=== PATIENT | female | born 1970 | race Caucasian/White ===

== ENCOUNTER 2022-12-03 15:09 | Emergency (ER) | payer MEDICARE, SELFPAY ==
[2022-12-03 15:17] VITALS: BP 137/83; PULSE 84; RESP 18; TEMP 36.4; O2SAT 99; BMI 40.4
--- NOTE | 2022-12-03 15:26 | ED.EXTPRO1 ---
HPI - Extremity Problem General Chief complaint: Chest Pain Stated complaint: UPPER EXTREMITY PAIN Time Seen by Provider: 12/03/22 15:26 Mode of arrival: walk-in History of Present Illness HPI Narrative: Patient presents to emergency department complaining of left arm pain, left shoulder pain and chest pain that started yesterday. She states she woke up and her left shoulder was hurting radiating to her arm and chest. She states her arm looks a little bit puffy 2. She states the pain is worse when she lays down on it fall out of bed. She denies any fever, chills, or cough. She denies any shortness of breath. She does not have any history of heart disease or thrombotic embolic disease but states her mother had a clotting disorder. She has a history of hypertension. She has never had a cardiac workup before. She has not taking anything at home for pain. She denies any fall or trauma. She denies Any weakness. She denies any nausea, vomiting, and diarrhea. She denies any abdominal pain. She denies any flank pain, hematuria, dysuria. Related Data Home Medications Medication Instructions Recorded Confirmed ergocalciferol (vitamin D2) 1,250 2,500 mcg PO QDAY 12/03/22 12/03/22 mcg (50,000 unit) capsule hydrochlorothiazide 25 mg tablet 25 mg PO QDAY 12/03/22 12/03/22 lisinopril 20 mg tablet 20 mg PO QDAY 12/03/22 12/03/22 vitamin B12 0.5 mg-folic acid 1 mg 1 tab PO DAILY 12/03/22 12/03/22 tablet Previous Rx's Medication Instructions Recorded esomeprazole magnesium 40 mg 40 mg PO DAILY 28 days #28 caps 12/03/22 capsule,delayed release (Nexium) prednisone 50 mg tablet 50 mg PO DAILY 5 days #5 tabs 12/03/22 Allergies Allergy/AdvReac Type Severity Reaction Status Date / Time No Known Drug Allergies Allergy Verified 12/03/22 15:17 Review of Systems ROS Narrative ROS: Unless otherwise stated in this report the patient's positive and negative responses for review of systems for constitutional, eyes, ENT, cardiovascular, respiratory, gastrointestinal, neurological, , musculoskeletal and integument systems and related systems to the presenting problem are either stated in the history of present illness or were not pertinent or were negative for the symptoms and/or complaints related to the presenting medical problem. [facility] Social History Smoking status: Never smoker Exam Narrative Exam Narrative: Nurses notes and vital signs reviewed and patient is not hypoxic. General: Nontoxic, Well-appearing and in no apparent distress. Skin: Warm, dry, no pallor noted. No Rash Head: Normocephalic, atraumatic. Neck: Supple, non-tender. Eye: Pupils are equal, round and EOMI. No scleral icterus. Ears, Nose, Mouth, and Throat: TM clear, no posterior oropharynx erythema or nasal mucosal hypertrophy, uvula is mid-line Oral mucosa is moist Cardiovascular: Regular Rate and Rhythm without murmur, gallop or rub. Respiratory: No accessory muscle use or respiratory distress. Lungs are clear to auscultation, no wheezing, rales or rhonchi Chest Wall: no tenderness Back: No midline thoracic or lumbar vertebral tenderness. No CVA tenderness Musculoskeletal: Rest to palpation to the left anterior and posterior shoulder. Pain is worsened with palpation and range of motion. Pain is worse over the biceps tendon occipital insertion. There is small amount of nonpitting edema noted. There are no palpable cords. radial pulse +2, cap refill brisk. normal ROM, no calf or popliteal tenderness, no lower extremity edema/swelling GI: Abdomen is soft, non-distended. Normal bowel sounds. No masses appreciated. No tenderness to palpation. No rebound, guarding, or rigidity noted. Neurological: A&O x4. No cranial nerve dysfunction observed. No truncal ataxia. Moves all extremities. Sensation intact. Psychiatric: Cooperative and interactive. Normal mood and affect. Constitutional Vital Signs - 24 hr 12/03/22 15:17 Temperature 97.6 F Pulse Rate [Monitor] 84 Respiratory Rate 18 Blood Pressure [Left Arm] 137/83 H Pulse Oximetry 99 Oxygen Delivery Method Room Air Course Vital Signs Vital signs: Vital Signs Temperature 97.6 F 12/03/22 15:17 Pulse Rate 84 12/03/22 15:17 Respiratory Rate 18 12/03/22 15:17 Blood Pressure 137/83 H 12/03/22 15:17 Pulse Oximetry 99 12/03/22 15:17 Oxygen Delivery Method Room Air 12/03/22 15:17 Temperature 97.6 F 12/03/22 15:17 Pulse Rate 84 12/03/22 15:17 Respiratory Rate 18 12/03/22 15:17 Blood Pressure 137/83 H 12/03/22 15:17 Pulse Oximetry 99 12/03/22 15:17 Oxygen Delivery Method Room Air 12/03/22 15:17 MDM - Extremity (Nontraumatic) MDM Narrative Medical decision making narrative: pt had an IV established. She will have blood work, chest x-ray, and Toradol 30 mg IV.Patient felt better. All results were discussed with patient. Patient is tender with range of motion and palpation over the biceps tendon. CT scan of her chest is also discussed with patient and she will follow up with her primary care doctor and gastroenterology. The patient will be given a prescription for a steroid. She will take Tylenol at home. She will follow up with her primary care doctor. All of the other results were also discussed with the patient. She will discussed the workup with the primary care doctor. At this time the patient is without objective evidence of an acute process requiring hospitalization or inpatient management. The patient has remained hemodynamically stable. No additional indication for emergent studies at this time. I answered all questions. Discussed discharge instructions including standard anticipatory guidance and what should prompt a return to the emergency department, including if they get worse are not getting better or develops any new or concerning symptoms. I've given them specific time frame in which to follow-up, and who to follow-up with. The patient demonstrates understanding. Patient is nontoxic and stable for discharge with outpatient follow-up. This note was created with the assistance of a speech recognition program. Although the intention is to generate documents that actually reflects the content of the visit, no guarantees can be provided that every mistake has been identified and corrected by editing. Differential Diagnosis Differential diagnosis: Likely herpes zoster, superficial thrombophlebitis, deep venous thrombosis of upper extremity and deep vein thrombosis of lower extremity Lab Data Attestation: I reviewed the patient's lab results. Labs: Lab Results 12/03/22 Range/Units 15:25 WBC 9.6 (4.0-11.0) 10^3/uL RBC 4.43 (4.20-5.40) 10^6/uL Hgb 13.7 (12.0-16.0) g/dL Hct 40.0 (36.0-48.0) % MCV 90.3 (81.0-99.0) fL MCH 30.9 (26.7-34.0) pg MCHC 34.3 (29.9-35.2) g/dL RDW 12.7 (11.0-15.0) % Plt Count 307 (150-450) 10^3/uL MPV 9.1 L (9.5-13.5) fL Neut % (Auto) 52.4 (43.0-75.0) % Lymph % (Auto) 33.6 (20.5-60.0) % [place] % (Auto) 10.3 (1.7-12.0) % Eos % (Auto) 2.7 (0.9-7.0) % Baso % (Auto) 0.7 (0.2-2.0) % Neut # (Auto) 5.0 (1.4-6.5) 10^3/uL Lymph # (Auto) 3.2 (1.2-3.8) 10^3/uL [place] # (Auto) 1.0 H (0.3-0.8) 10^3/uL Eos # (Auto) 0.3 (0.0-0.7) 10^3/uL Baso # (Auto) 0.1 (0.0-0.1) 10^3/uL Abs Immat Gran (auto) 0.03 (0.00-0.03) 10^3/uL Imm/Tot Granulo (auto) 0.3 (0.0-0.5) % PT 10.7 (9.0-11.6) sec INR 1.01 APTT 27.4 (22.3-36.2) sec D-Dimer 0.68 H* (<=0.59) mg/L FEU Sodium 132 L (136-145) mmol/L Potassium 3.1 L (3.5-5.1) mmol/L Chloride 96 L (98-107) mmol/L Carbon Dioxide 27.8 (21.0-32.0) mmol/L Anion Gap 11.3 BUN 10.0 (7.0-18.0) mg/dL Creatinine 0.86 (0.55-1.02) mg/dL Est GFR ( Amer) >60 (>=60) Est GFR (Non-Af Amer) >60 (>=60) BUN/Creatinine Ratio 11.6 Glucose 186 H (74-106) mg/dL Calcium 8.7 (8.5-10.1) mg/dL Total Bilirubin 0.5 (0.2-1.0) mg/dL AST 19 (15-37) U/L ALT 27 (14-59) U/L Alkaline Phosphatase 53 (46-116) U/L Troponin I High Sens <4.0 L (4.0-51.3) pg/mL Total Protein 7.7 (6.4-8.2) g/dL Albumin 3.3 L (3.4-5.0) g/dL Globulin 4.4 g/dL Albumin/Globulin Ratio 0.8 ECG Data Attestation ECG: I personally reviewed and interpreted this ECG as follows: Discharge Plan Discharge Chief Complaint: Chest Pain Clinical Impression: Biceps tendinitis of left shoulder, Esophagitis, Chest pain Patient Disposition: Home, Self-Care Time of Disposition Decision: 17:30 Mode of Transportation: Private Vehicle Prescriptions / Home Meds: New prednisone 50 mg tablet 50 mg PO DAILY 5 Days Qty: 5 0RF esomeprazole magnesium [Nexium] 40 mg capsule,delayed release(DR/EC) 40 mg PO DAILY 28 Days Qty: 28 0RF No Action ergocalciferol (vitamin D2) 1,250 mcg (50,000 unit) capsule 2,500 mcg PO QDAY hydrochlorothiazide 25 mg tablet 25 mg PO QDAY lisinopril 20 mg tablet 20 mg PO QDAY vitamin [id number] acid 0.5-1 mg tablet 1 tab PO DAILY Instructions: Chest Pain (ED), Tendinitis (ED), Esophagitis (ED) Stand Alone Forms: Portal Instructions Referrals: Minerva Kowalski MD [Primary Care Provider] - 1 week COMFORT [facility]ILE [Physician] - 1 week
[2022-12-03 15:36] VITALS: PULSE 87
--- NOTE | 2022-12-03 15:40 | XR_ITS ---
The [address] [address] Patient Name: MELODIE REYES MRN: [id number] date: 1970 Sex: F Assigned Patient Location: ER Current Patient Location: ER Accession/Order Number: [id number] Exam Date: 12/03/2022 15:55 Report Date: 12/03/2022 16:06 At the request of: ABHI NGUYEN Procedure: XR chest 1V EXAMINATION: XR chest 1V HISTORY: dyspnea COMPARISON: No relevant comparison available. FINDINGS: LUNGS: No significant pulmonary parenchymal abnormalities. VASCULATURE: No increased pulmonary vasculature. PLEURA: No pneumothorax, effusion, or pleural thickening. CARDIAC: No cardiomegaly or cardiac silhouette abnormality. MEDIASTINUM: No visible mass or adenopathy. BONES: No fracture or visible bone lesion. OTHER: Negative. IMPRESSION: 1. No acute cardiopulmonary process. Electronically authenticated by: SHARON BURGESS Date: 12/03/2022 16:06
--- NOTE | 2022-12-03 15:40 | ECG_ITS ---
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
--- NOTE | 2022-12-03 15:42 | US_ITS ---
The [address] [address] Patient Name: MELODIE REYES MRN: [id number] date: 1970 Sex: F Assigned Patient Location: ER Current Patient Location: ER Accession/Order Number: [id number] Exam Date: 12/03/2022 15:50 Report Date: 12/03/2022 16:28 At the request of: ABHI NGUYEN Procedure: US venous doppler UE LT EXAM: US venous doppler UE LT COMPARISON: None. CLINICAL HISTORY: pain, swelling TECHNIQUE: Baeza scale images without and with compression, and color Doppler imaging with pulsed Doppler interrogation without and with augmentation. FINDINGS: The deep veins of the left upper extremity are widely patent on the basis of color Doppler, compression, and augmentation maneuvers, from the common femoral vein through the upper calf veins. IMPRESSION: NO SONOGRAPHIC EVIDENCE FOR LEFT UPPER EXTREMITY DEEP VEIN THROMBOSIS. Electronically authenticated by: ANNA PALMA Date: 12/03/2022 16:28
[2022-12-03 15:52] LABS: Basophils Absolute Auto 0.1 10^3/uL (0.0-0.1); Basophils Percent Auto 0.7 % (0.2-2.0); Eosinophils Absolute Auto 0.3 10^3/uL (0.0-0.7); Eosinophils Percent Auto 2.7 % (0.9-7.0); Hemoglobin 13.7 g/dL (12.0-16.0); Immature Granulocytes Abs Auto 0.03 10^3/uL (0.00-0.03); Immature Granulocytes Pct Auto 0.3 % (0.0-0.5); Lymphocytes Absolute Auto 3.2 10^3/uL (1.2-3.8); Lymphocytes Percent Auto 33.6 % (20.5-60.0); Mean Corpuscular HGB Conc 34.3 g/dL (29.9-35.2); Mean Corpuscular Hemoglobin 30.9 pg (26.7-34.0); Mean Corpuscular Volume 90.3 fL (81.0-99.0); Mean Platelet Volume 9.1 fL (9.5-13.5); Monocytes Percent Auto 10.3 % (1.7-12.0); Neutrophils Percent Auto 52.4 % (43.0-75.0); Platelet Count 307 10^3/uL (150-450); Red Blood Count 4.43 10^6/uL (4.20-5.40); Red Cell Distribution Width 12.7 % (11.0-15.0); White Blood Count 9.6 10^3/uL (4.0-11.0)
[2022-12-03] MEDS: KETOROLAC TROMETHAMINE 30 MG/ML VIAL IVP (15:57)
[2022-12-03 16:00] LABS: INR 1.01; Partial Thromboplastin Time 27.4 sec (22.3-36.2); Prothrombin Time 10.7 sec (9.0-11.6)
[2022-12-03 16:03] LABS: Alanine Aminotransferase 27 U/L (14-59); Albumin Globulin Ratio 0.8; Albumin Level 3.3 g/dL (3.4-5.0); Alkaline Phosphatase 53 U/L (46-116); Anion Gap 11.3; Aspartate Amino Transferase 19 U/L (15-37); BUN Creatinine Ratio 11.6; Bilirubin Total 0.5 mg/dL (0.2-1.0); Calcium 8.7 mg/dL (8.5-10.1); Carbon Dioxide 27.8 mmol/L (21.0-32.0); Chloride 96 mmol/L (98-107); Estimated GFR (African America >60 (>=60); Estimated GFR (Non-African Ame >60 (>=60); Globulin 4.4 g/dL; Glucose 186 mg/dL (74-106); Potassium 3.1 mmol/L (3.5-5.1); Sodium 132 mmol/L (136-145); Total Protein 7.7 g/dL (6.4-8.2); Troponin I High Sensitivity <4.0 pg/mL (4.0-51.3)
[2022-12-03 16:05] LABS: D Dimer 0.68 mg/L FEU (<=0.59)
--- NOTE | 2022-12-03 16:12 | CT_ITS ---
The [address] [address] Patient Name: MELODIE REYES MRN: [id number] date: 1970 Sex: F Assigned Patient Location: ER Current Patient Location: ER Accession/Order Number: [id number] Exam Date: 12/03/2022 16:30 Report Date: 12/03/2022 17:00 At the request of: ABHI NGUYEN Procedure: CT angio chest EXAM: CT angio chest HISTORY: arm and chest pain COMPARISON: None. TECHNIQUE: CT chest with intravenous contrast was performed with timing for the evaluation for pulmonary arteries. Multiplanar reformats were performed. MIP (maximum intensity projection) images or 3D post processing was performed. Dose reduction techniques were achieved by using automated exposure control and/or adjustment of mA and/or kV according to patient size and/or use of iterative reconstruction technique. FINDINGS: Lungs: No consolidation, mass, or effusion. Airways: Normal. Mediastinum: No adenopathy. Aorta: No aneurysm. Cardiac: Normal size. No pericardial effusion. Pulmonary vasculature: Diagnostic opacification of pulmonary arteries without evidence of pulmonary embolus. Normal morphology. Bones: No acute bony abnormality. Axilla: No adenopathy. Thyroid gland: No abnormality demonstrated on provided imaging. Soft tissues: Unremarkable. Upper abdomen: Circumferential wall thickening of the distal esophagus, may represent esophagitis. Correlation with patient's history is recommended. Additional findings: None. IMPRESSION: No evidence of acute pulmonary embolus or acute intrathoracic abnormality. Circumferential wall thickening of the distal esophagus, may represent esophagitis. Correlation with patient's history is recommended. Electronically authenticated by: CORRINE JEFFREY Date: 12/03/2022 17:00
== END 2022-12-03 17:51 | disposition home or self-care (01) ==
PROVIDERS: Emergency Provider Emergency Medicine; PCP Specialist
DX: R07.9 Chest pain, unspecified (principal); K20.90 Esophagitis, unspecified without bleeding; M75.22 Bicipital tendinitis, left shoulder; Z79.899 Other long term (current) drug therapy
CPT/HCPCS: 36415; 71045; 71275; 80053; 84484; 85025; 85378; 85610; 85730; 93005; 93971; 96374; 99285; Q9967